=== PATIENT | female | born 1980 | race Asian ===

== ENCOUNTER 2016-12-09 10:10 | Outpatient (CLI) | payer OTHER ==
[~2016-12-09] VITALS: Ht 170.2 cm; Wt 97.5 kg
[2016-12-09 11:25] VITALS: BP 116/80; TEMP 98
== END 2016-12-09 11:25 | disposition home or self-care (01) ==
LOC: INF 10:10
DX: L73.2 Hidradenitis suppurativa (principal)
CPT/HCPCS: 96365; J1335

== ENCOUNTER 2016-12-10 10:16 | Outpatient (CLI) | payer OTHER ==
[~2016-12-10] VITALS: Ht 170.2 cm; Wt 97.5 kg
[2016-12-10 11:30] VITALS: BP 122/80; TEMP 97.7
== END 2016-12-10 11:30 | disposition home or self-care (01) ==
LOC: INF 10:16
DX: L73.2 Hidradenitis suppurativa (principal)
CPT/HCPCS: 96365; J1335

== ENCOUNTER 2016-12-11 11:50 | Outpatient (CLI) | payer OTHER ==
[~2016-12-11] VITALS: Ht 170.2 cm; Wt 97.5 kg
[2016-12-11 12:00] VITALS: BP 116/84; TEMP 99
== END 2016-12-11 12:45 | disposition home or self-care (01) ==
LOC: INF 11:50
DX: L73.2 Hidradenitis suppurativa (principal)
CPT/HCPCS: 96365; J1335

== ENCOUNTER 2016-12-12 10:34 | Outpatient (CLI) | payer OTHER ==
[~2016-12-12] VITALS: Ht 170.2 cm; Wt 97.5 kg
[2016-12-12 10:42] VITALS: BP 128/72; TEMP 98.8
== END 2016-12-12 13:00 | disposition home or self-care (01) ==
LOC: INF 10:34
DX: L73.2 Hidradenitis suppurativa (principal)
CPT/HCPCS: 96365; J1335

== ENCOUNTER 2016-12-13 11:10 | Outpatient (CLI) | payer OTHER ==
[~2016-12-13] VITALS: Ht 170.2 cm; Wt 97.5 kg
== END 2016-12-13 14:00 | disposition home or self-care (01) ==
LOC: INF 11:10
DX: L73.2 Hidradenitis suppurativa (principal)
CPT/HCPCS: 96365; J1335

== ENCOUNTER 2016-12-14 13:42 | Outpatient (CLI) | payer OTHER ==
[~2016-12-14] VITALS: Ht 170.2 cm; Wt 97.5 kg
[2016-12-14 14:23] VITALS: BP 123/77; TEMP 98.2
[2016-12-14 14:55] VITALS: BP 118/71
== END 2016-12-14 14:55 | disposition home or self-care (01) ==
LOC: INF 13:42
DX: L73.2 Hidradenitis suppurativa (principal)
CPT/HCPCS: 96365; J1335

== ENCOUNTER 2016-12-15 13:00 | Outpatient (CLI) | payer OTHER ==
[~2016-12-15] VITALS: Ht 170.2 cm; Wt 97.5 kg
[2016-12-15 14:25] VITALS: BP 11/74; TEMP 98.4
== END 2016-12-15 14:28 | disposition home or self-care (01) ==
LOC: INF 13:00
DX: L73.2 Hidradenitis suppurativa (principal)
CPT/HCPCS: 96365; J1335

== ENCOUNTER 2016-12-16 10:22 | Outpatient (CLI) | payer OTHER ==
[~2016-12-16] VITALS: Ht 170.2 cm; Wt 97.5 kg
[2016-12-16 11:50] VITALS: BP 125/76; TEMP 98
== END 2016-12-16 11:50 | disposition home or self-care (01) ==
LOC: INF 10:22
DX: L73.2 Hidradenitis suppurativa (principal)
CPT/HCPCS: 96365; J1335

== ENCOUNTER 2016-12-17 10:30 | Outpatient (CLI) | payer OTHER ==
[~2016-12-17] VITALS: Ht 170.2 cm; Wt 97.5 kg
[2016-12-17 14:30] VITALS: BP 128/88; TEMP 98
== END 2016-12-17 14:30 | disposition home or self-care (01) ==
LOC: INF 10:30
DX: L73.2 Hidradenitis suppurativa (principal)
CPT/HCPCS: 96365; J1335

== ENCOUNTER 2016-12-18 12:03 | Outpatient (CLI) | payer OTHER ==
[~2016-12-18] VITALS: Ht 170.2 cm; Wt 97.5 kg
== END 2016-12-18 20:06 | disposition home or self-care (01) ==
LOC: INF 12:03
DX: L73.2 Hidradenitis suppurativa (principal)
CPT/HCPCS: 96365; J1335

== ENCOUNTER 2016-12-19 15:47 | Outpatient (CLI) | payer OTHER | END 2016-12-19 19:01 | disposition home or self-care (01) | LOC: INF 15:47 | DX: L73.2 Hidradenitis suppurativa (principal) | CPT/HCPCS: 96365; J1335 ==

== ENCOUNTER 2016-12-21 10:18 | Outpatient (CLI) | payer OTHER ==
[~2016-12-21] VITALS: Ht 170.2 cm; Wt 97.5 kg
== END 2016-12-21 11:53 | disposition home or self-care (01) ==
LOC: INF 10:18
DX: L73.2 Hidradenitis suppurativa (principal)
CPT/HCPCS: 96365; J1335

== ENCOUNTER 2016-12-22 13:00 | Outpatient (CLI) | payer OTHER ==
[~2016-12-22] VITALS: Ht 170.2 cm; Wt 97.5 kg
[2016-12-22 14:05] VITALS: BP 110/72; TEMP 97.5
[2016-12-22 15:05] VITALS: BP 116/75
== END 2016-12-22 15:08 | disposition home or self-care (01) ==
LOC: INF 13:00
DX: L73.2 Hidradenitis suppurativa (principal)
CPT/HCPCS: 96365; J1335

== ENCOUNTER 2016-12-23 14:54 | Outpatient (CLI) | payer OTHER ==
[~2016-12-23] VITALS: Ht 170.2 cm; Wt 97.5 kg
[2016-12-23 15:05] VITALS: BP 114/78; TEMP 97.5
[2016-12-23 15:45] VITALS: BP 107/74
== END 2016-12-23 19:57 | disposition home or self-care (01) ==
LOC: INF 14:54
DX: L73.2 Hidradenitis suppurativa (principal)
CPT/HCPCS: 96365; J1335

== ENCOUNTER 2016-12-24 09:33 | Outpatient (CLI) | payer OTHER ==
[~2016-12-24] VITALS: Ht 170.2 cm; Wt 97.5 kg
[2016-12-24 09:40] VITALS: BP 122/85; TEMP 98.8
[2016-12-24 10:35] VITALS: BP 106/76
== END 2016-12-24 19:29 | disposition home or self-care (01) ==
LOC: OR 09:33 → INF 09:33
PROC: 05H533Z Insertion of Infusion Device into Right Subclavian Vein, Percutaneous Approach (ICD-10-PCS; principal; 2016-12-24)
DX: L73.2 Hidradenitis suppurativa (principal); Z79.899 Other long term (current) drug therapy
CPT/HCPCS: 36571; 96365; C1751; J1335

== ENCOUNTER 2016-12-25 15:27 | Outpatient (CLI) | payer OTHER ==
[~2016-12-25] VITALS: Ht 170.2 cm; Wt 97.5 kg
== END 2016-12-25 18:30 | disposition home or self-care (01) ==
LOC: INF 15:27
DX: L73.2 Hidradenitis suppurativa (principal)
CPT/HCPCS: 96365; J1335

== ENCOUNTER 2016-12-26 13:21 | Outpatient (CLI) | payer OTHER | END 2016-12-26 13:35 | disposition home or self-care (01) | LOC: INF 13:21 | DX: L73.2 Hidradenitis suppurativa (principal) | CPT/HCPCS: 96365; 96375; J1335; J1642 ==

== ENCOUNTER 2016-12-27 13:37 | Outpatient (CLI) | payer OTHER | END 2016-12-27 16:00 | disposition home or self-care (01) | LOC: INF 13:37 | DX: L73.2 Hidradenitis suppurativa (principal) | CPT/HCPCS: 96365; J1335 ==

== ENCOUNTER 2016-12-28 15:10 | Outpatient (CLI) | payer OTHER ==
[~2016-12-28] VITALS: Ht 170.2 cm; Wt 97.5 kg
== END 2016-12-28 19:39 | disposition home or self-care (01) ==
LOC: INF 15:10
DX: L73.2 Hidradenitis suppurativa (principal)
CPT/HCPCS: 96365; J1335; J1642

== ENCOUNTER 2016-12-30 14:53 | Outpatient (CLI) | payer OTHER ==
[~2016-12-30] VITALS: Ht 170.2 cm; Wt 97.5 kg
[2016-12-30 15:00] VITALS: BP 110/75; TEMP 98.7
[2016-12-30 16:05] VITALS: BP 110/75
== END 2016-12-30 17:00 | disposition home or self-care (01) ==
LOC: INF 14:53
DX: L73.2 Hidradenitis suppurativa (principal)
CPT/HCPCS: 96365; 96375; J1335; J1642

== ENCOUNTER 2016-12-31 09:33 | Outpatient (CLI) | payer OTHER ==
[~2016-12-31] VITALS: Ht 170.2 cm; Wt 97.5 kg
[2016-12-31 10:00] VITALS: BP 121/88; TEMP 97.5
[2016-12-31 11:05] VITALS: BP 126/90
== END 2016-12-31 11:05 | disposition home or self-care (01) ==
LOC: INF 09:33
DX: L73.2 Hidradenitis suppurativa (principal)
CPT/HCPCS: 96365; 96375; J1335; J1642

== ENCOUNTER 2017-01-01 12:09 | Outpatient (CLI) | payer OTHER | END 2017-01-01 19:07 | disposition home or self-care (01) | LOC: INF 12:09 | DX: L73.2 Hidradenitis suppurativa (principal) | CPT/HCPCS: 96365; 96375; J1335; J1642 ==

== ENCOUNTER 2017-01-03 16:32 | Outpatient (CLI) | payer OTHER | END 2017-01-03 19:20 | disposition home or self-care (01) | LOC: INF 16:32 | DX: L73.2 Hidradenitis suppurativa (principal) | CPT/HCPCS: 96365; 96375; J1335; J1642 ==

== ENCOUNTER 2017-01-04 13:43 | Outpatient (CLI) | payer OTHER | END 2017-01-04 15:21 | disposition home or self-care (01) | LOC: INF 13:43 | DX: L73.2 Hidradenitis suppurativa (principal) | CPT/HCPCS: 96365; J1335 ==

== ENCOUNTER 2017-01-05 15:02 | Outpatient (CLI) | payer OTHER ==
[~2017-01-05] VITALS: Ht 170.2 cm; Wt 97.5 kg
[2017-01-05 15:30] VITALS: BP 140/100; TEMP 97.9
[2017-01-05 16:14] VITALS: BP 124/89
== END 2017-01-05 16:23 | disposition home or self-care (01) ==
LOC: INF 15:02
DX: L73.2 Hidradenitis suppurativa (principal)
CPT/HCPCS: 96365; J1335

== ENCOUNTER 2017-06-03 22:41 | Emergency (ER) | payer OTHER ==
[~2017-06-03] VITALS: Ht 170.2 cm; Wt 103.9 kg
[2017-06-04 00:40] VITALS: BP 139/98; TEMP 98.7
== END 2017-06-04 00:45 | disposition home or self-care (01) ==
LOC: ED 22:41
DX: M94.0 Chondrocostal junction syndrome [Tietze] (principal); R00.0 Tachycardia, unspecified
CPT/HCPCS: 36415; 82550; 84484; 96374; 99284; J1885

== ENCOUNTER 2018-03-09 10:41 | Outpatient (CLI) | payer OTHER ==
[2018-03-09 16:39] LABS: PLATELET COUNT 307 K/uL (152-353)
== END 2018-03-09 19:49 | disposition home or self-care (01) ==
LOC: LABW 10:41 → MAMMO 10:41
PROVIDERS: Obstetrics & Gynecology
DX: Z12.31 Encounter for screening mammogram for malignant neoplasm of breast (principal); N92.0 Excessive and frequent menstruation with regular cycle
CPT/HCPCS: 82397; 84443; 85027

== ENCOUNTER 2019-03-30 15:13 | Outpatient (CLI) | payer OTHER | END 2019-03-30 19:17 | disposition home or self-care (01) | LOC: MAMMO 15:13 | DX: Z12.31 Encounter for screening mammogram for malignant neoplasm of breast (principal) ==

== ENCOUNTER 2022-03-24 13:36 | Outpatient (CLI) | payer OTHER | END 2022-03-24 20:01 | disposition home or self-care (01) | LOC: MAMMO 13:36 | PROVIDERS: ATTEND Nurse Practitioner Family | DX: N63.20 Unspecified lump in the left breast, unspecified quadrant (principal) | CPT/HCPCS: G0279 ==